=== PATIENT | female | born 1995 | race Two or more races ===

== ENCOUNTER 2024-10-12 14:00 | Emergency (ER) | payer OTHER ==
[~2024-10-12] VITALS: Ht 172.7 cm; Wt 85.6 kg
[2024-10-12 14:56] LABS: Basophils # (auto) 0.1 10 ^3/uL (0-0.2); Basophils % (auto) 0.9 % (0.0-2.0); Eosinophils # (auto) 0.1 10 ^3/uL (0-0.8); Eosinophils % (auto) 1.1 % (0.0-7.0); Hematocrit 43.7 % (36.0-46.0); Hemoglobin 14.8 g/dL (12.2-16.2); Lymphocytes % (auto) 29.8 % (10.0-50.0); Mean Corpuscular Hemoglobin 30.8 pg (28.0-32.0); Mean Corpuscular Hgb Conc. 33.9 g/dL (32.0-36.0); Mean Corpuscular Volume 90.7 fL (80.0-100.0); Monocytes # (auto) 0.4 10 ^3/uL (0-1.3); Monocytes % (auto) 5.9 % (0.0-12.0); Neutrophils # (auto) 4.2 10 ^3/uL (1.6-8.6); Neutrophils % (auto) 62.3 % (37.0-80.0); Nucleated Red Blood Cells % 0.5 %; Platelet Count (auto) 280 10^3/uL (140-450); Red Blood Cells 4.82 10^6/uL (4.0-5.20); Red Cell Distribution Width 12.8 % (11.8-14.3); White Blood Cell 6.8 10^3/uL (4.4-10.8)
[2024-10-12 15:16] VITALS: BP 128/82; PULSE 70; RESP 16; TEMP 98.2; O2SAT 98
--- NOTE | 2024-10-12 16:03 | ED.PDOC ---
[facility] HPI Comments A 29 YEAR OLD FEMALE PRESENTS TO THE ED WITH COMPLAINT OF VAGINAL BLEEDING AND PELVIC CRAMPING. PATIENT STATES SHE IS CURRENTLY , BUT DOES NOT KNOW HOW FAR ALONG SHE WAS AND BEGAN TO EXPERIENCE VAGINAL BLEEDING AND PELVIC CRAMPING ABOUT 6 DAYS AGO. PATIENT REPORTS SHE WENT TO HER PRIMARY CARE PHYSICIAN, BUT WAS TOLD SHE MAY BE HAVING MISCARRIAGE DUE TO HER BETA HCG QUANT DECREASING. PATIENT WAS HERE IN THE ED TO HAVE HER BETA HCG LEVEL RECHECKED. PATIENT DENIES DYSURIA, HEMATURIA, VAGINAL DISCHARGE, FEVER, CHILLS, SHORTNESS OF BREATH, CHEST PAIN, ABDOMINAL PAIN, NAUSEA, VOMITING, HEADACHE, OR OTHER COMPLAINTS. NO OTHER SYMPTOMS OR MODIFYING FACTORS AT THIS TIME. PATIENT IS ALERT, ORIENTED X 4, AND HAS STEADY GAIT. Chief Complaint: Vaginal Bleed Time Seen by MD: 14:19 Reviewed Notes: Nurses Notes, Medications Allergies: Coded Allergies: Ciprofloxacin (Verified Allergy, Unknown, 10/12/24) Information Source: Patient Mode of Arrival: Ambulatory Timing: Days Prehospital treatment: None Severity: Mild, Moderate Vaginal Discharge: None Vaginal Lesions: None Bleeding Quality: Bright Red Vaginal Mass: None Onset Of Mass/Bleeding: Spontaneous Sexual Activity: Last Consensual [place]: Unknown Control: None History of: Current Blood Type: Unknown Symptoms of Possible : None Associated Signs and Symptoms: Vaginal Bleeding, Cramping Past Medical History PAST MEDICAL HISTORY: Denies Surgical History: Denies all surgeries CASE COORDINATOR History: No Pertinent CASE COORDINATOR History Family History Family History: Reviewed,noncontributory to illness Social History Smoker: Non-Smoker Alcohol: Denies ETOH Use Drugs: Denies Drug Use Lives In: Home Constitutional: denies: chills, diaphoresis, fatigue, fever, malaise, sweats, weakness, others EENTM: denies: blurred vision, double vision, ear bleeding, ear discharge, ear drainage, ear pain, ear ringing, eye pain, eye redness, hearing loss, mouth pain, mouth swelling, nasal discharge, nose bleeding, nose congestion, nose pain, photophobia, tearing, throat pain, throat swelling, voice changes, others Respiratory: denies: cough, hemoptysis, orthopnea, SOB at rest, shortness of breath, SOB with excertion, stridor, wheezing, others Cardiovascular: denies: chest pain, dizzy spells, diaphoresis, Dyspnea on exertion, edema, irregular heart beat, left arm pain, lightheadedness, palpitations, PND, syncope, others Gastrointestinal: denies: abdomen distended, abdominal pain, blood streaked bowels, constipated, diarrhea, dysphagia, difficulty swallowing, hematemesis, melena, nausea, poor appetite, poor fluid intake, rectal bleeding, rectal pain, vomiting, others Genitourinary: reports: abnormal vagina bleeding, pain (PELVIC CRAMPING), ; denies: burning, dyspareunia, dysuria, flank pain, frequency, hematuria, incontinence, vagina discharge, urgency, others Neurological: denies: dizziness, fainting, headache, left sided numbness, left sided weakness, numbness, paresthesia, pre-existing deficit, right sided numbnes s, right sided weakness, seizure, speech problems, tingling, tremors, weakness, others Musculoskeletal: denies: back pain, gout, joint pain, joint swelling, muscle pain, muscle stiffness, neck pain, others Integumetry: denies: bruises, change in color, change in hair/nails, dryness, laceration, lesions, lumps, rash, wounds, others Allergic/Immunocompromised: denies: Difficulty Healing, Frequent Infections, Hives, Itching, others Hematologic/Lymphatic: denies: anemia, blood clots, easy bleeding, easy bruising, swollen glands, others Endocrine: denies: excessive hunger, excessive sweating, excessive thirst, excessive urination, flushing, intolerance to cold, intolerance to heat, unexplained weight gain, unexplained weight loss, others Psychiatric: denies: anxiety, bipolar disorder, depression, hopeless, panic disorder, schizophrenia, sleepless, suicidal, others All Other Systems: Reviewed and Negative Physical Exam General Appearance: No Apparent Distress, Normal HEENT: Normal ENT Inspection, PERRL/EOMI, Pharynx Normal, TMs Normal Neck: Full Range of Motion, Non-Tender, Normal, Normal Inspection Respiratory: Chest Non-Tender, Lungs Clear, No Accessory Muscle Use, No Respiratory Distress, Normal Breath Sounds Cardiovascular: No Edema, No JVD, No Murmur, No Gallop, Normal Peripheral Pulses, Regular Rate/Rhythm Breast Exam: Deferred Gastrointestinal: No Organomegaly, Non Tender, No Pulsatile Mass, Normal Bowel Sounds, Soft Genitalia: Deferred Pelvic: Normal External Exam, Vaginal Bleeding (MILD VAGINAL BLEEDING, NO ACTIVELY BLEEDING AND BLOOD CLOTS. ) Rectal: Deferred Extremities: No calf tenderness, Normal capillary refill, Normal inspection, Normal range of motion, Non-tender, No pedal edema Musculoskeletal : Apperance: Normal Neurologic: Alert, back office medical assistant II-XII nml as Tested, No Motor Deficits, Normal Affect, Normal Mood, No Sensory Deficits Cerebellar Function: Normal Reflexes: Normal Skin: Dry, Normal Color, Warm Peripheral Pulses: 2+ carotid (R), 2+ carotid (L) Lymphatic: No Adenopathy Was a procedure done? Was a procedure done?: No Differential Diagnosis (CASE COORDINATOR) Vaginal Bleeding: - Incomplete, - Threatened, Menorrhagia, Menstrual Bleeding, UTI, Vaginitis Mass / Lesion: N/A Vaginal Discharge: N/A X-Ray, Labs, Meds, VS Vital Signs Date Time Temp Pulse Resp B/P (MAP) Pulse Ox O2 Delivery O2 Flow Rate FiO2 10/12/24 15:16 70 16 98 Room Air 10/12/24 15:16 98.2 70 16 128/82 (97) 98 98.2 10/12/24 14:10 98.2 70 16 128/82 (97) 98 Lab Test 10/12/24 14:40 10/12/24 14:09 Range/Units White Blood Count 6.8 4.4-10.8 10^3/uL Red Blood Count 4.82 4.0-5.20 10^6/uL Hemoglobin 14.8 12.2-16.2 g/dL Hematocrit 43.7 36.0-46.0 % Mean Corpuscular Volume 90.7 80.0-100.0 fL Mean Corpuscular Hemoglobin 30.8 28.0-32.0 pg Mean Corpuscular Hemoglobin Concent 33.9 32.0-36.0 g/dL Red Cell Distribution Width 12.8 11.8-14.3 % Platelet Count 280 140-450 10^3/uL Mean Platelet Volume 7.9 6.9-10.8 fL Neutrophils (%) (Auto) 62.3 37.0-80.0 % Lymphocytes (%) (Auto) 29.8 10.0-50.0 % Monocytes (%) (Auto) 5.9 0.0-12.0 % Eosinophils (%) (Auto) 1.1 0.0-7.0 % Basophils (%) (Auto) 0.9 0.0-2.0 % Neutrophils # (Auto) 4.2 1.6-8.6 10 ^3/uL Lymphocytes # (Auto) 2.0 0.4-5.4 10 ^3/uL Monocytes # (Auto) 0.4 0-1.3 10 ^3/uL Eosinophils # (Auto) 0.1 0-0.8 10 ^3/uL Basophils # (Auto) 0.1 0-0.2 10 ^3/uL Nucleated Red Blood Cells 0.5 % Beta HCG, Quantitative 152.5 H 1.5-4.2 mIU/mL Urine Color Colorless Yellow Urine Clarity Clear Clear Urine pH 6.5 5.0-9.0 Urine Specific [place] 1.004 1.001-1.035 Urine Protein Negative Negative Urine Ketones Negative Negative Urine Blood 2+ H Negative /uL Urine Nitrite Negative Negative Urine Bilirubin Negative Negative Urine Urobilinogen Normal Negative mg/dL Urine Leukocyte Esterase Negative Negative /uL Urine RBC 3 0 - 4 /hpf Urine Microscopic WBC 2 0-5 /HPF Urine Squamous Epithelial Cells Few <5 /hpf Urine Bacteria Few H None Seen /hpf Urine Glucose Normal Normal mg/dL Urine Test Negative Negative Procedure: US OB ULTRASOUND COMP LESS 14WKS Study Date and Requested Time: 10/12/2024 03:33 PM Study Description: US OB ULTRASOUND COMP LESS 14WKS Study VAG BLEEDING Comparison: None Technique: Multiple high resolution casas-scale images obtained of the uterus, fetus, and other gestational components with M-mode scanning for evaluation of heart rate. Findings: Intrauterine 0.9 cm sonolucent area over the fundus with no yolk sac or pole visualized. Uterus measures 8.3 x 5.1 x 3.8 cm in size. Multiple heterogeneous areas within the uterus which may represent fibroids, largest measuring up to 2.2 cm. Endometrial thickness of 0.3 cm Cervical os appears closed. Right ovary measures 3.7 x 2 x 2.5 cm. Left ovary measures 3.2 x 1.3 x 2.3 cm. Normal ovarian color Doppler flow bilaterally. No evidence of cystic or solid ovarian lesions. No evidence of free fluid in the cul-de-sac. Impression: 0.9 cm intrauterine sonolucent area with no yolk sac or pole visualized. Finding may represent early . Recommend correlation with serial beta HCG and ultrasound as clinically indicated. Fibroid uterus. ATED BY: ARSLAN MATA DO DICTATED DATE/TIME: 10/12/241702 SIGNED BY: ARSLAN MATA DO SIGNED DATE/TIME: 10/12/241702 CC: X-Ray, Labs, Meds, VS Comment EXTERNAL MEDICAL RECORDS REVIEWED: [NONE] INDEPENDENT HISTORIANS: [NONE] SOCIAL DETERMINANTS OF HEALTH: [NONE] LABS ORDERED: CBC, UA, BETA HCG QUANT REVIEWED AND INTERPRETED RESULTS: BLOOD 2+, BETA HCG QUANT 152.5 IMAGING ORDERED: US OB < 14 WKS TREATMENTS ORDERED: NONE PROCEDURES PERFORMED: NONE CRITICAL CARE TIME: NONE I HAVE DISCUSSED THE PATIENT WITH THE ATTENDING PHYSICIAN DR. CHACON AND HE AGREES WITH THE PATIENT'S PLAN OF CARE AND DISPOSITION. BASED ON HISTORY OF PRESENT ILLNESS, AND PHYSICAL EXAM, PATIENT WILL BE DISCHARGED HOME. SHARED DECISION MAKING: PATIENT INSTRUCTED TO FOLLOW UP WITH PRIMARY CARE PROVIDER IN 1-2 DAYS FOR RE-EVALUATION OF SYMPTOMS. PATIENT VERBALIZES UNDERSTANDING TO RETURN TO ED FOR NEW OR WORSENING SYMPTOMS OR IF FOLLOW UP WITH PCP CANNOT BE OBTAINED. PATIENT FEELS COMFORTABLE GOING HOME AT THIS TIME. ALL QUESTIONS ADDRESSED AT TIME OF DISCHARGE. Images Reviewed?: Images reviewed and evaluated by me Time of 1ST Reevaluation: 17:15 Reevaluation 1ST: Improved Patient Education/Counseling: Diagnosis, Treatment, Need For Follow Up Family Education/Counseling: Diagnosis, Treatment, Need For Follow Up Medical Screening: No EMC Exist At This Time Departure 1 Departure Time of Disposition: 17:15 Impression: Primary Impression: Vaginal bleeding Additional Impressions: Threatened in early Uterine fibroid Qualified Codes: D25.9 - Leiomyoma of uterus, unspecified Disposition: 01 HOME / SELF CARE / HOMELESS Condition: Stable Additional Instructions: FOLLOW-UP WITH PCP AND [facility] IN 2 DAYS. RETURN TO ED FOR ANY NEW OR WORSENING SYMPTOMS. Discharged With: Self Critical Care Note Critical Care Time?: No Stability Stability form required: No I personally scribed for JADEN NICKERSON ([email or web address]) on 10/12/24 at 16:03. Electronically submitted by Hardeep Edwards ([email or web address]). I personally scribed for JADEN NICKERSON ([email or web address]) on 10/12/24 at 17:09. Electronically submitted by Hardeep Edwards ([email or web address]). JADEN NICKERSON Oct 12, 2024 16:03
[2024-10-12 16:42] LABS: Urine Bacteria FEW /hpf (None Seen); Urine Blood 2+ /uL (Negative); Urine Clarity Clear (Clear); Urine Color Colorless (Yellow); Urine Protein, UAD Negative (Negative); Urine Specific Gravity 1.004 (1.001-1.035); Urine Squamous Epithelial Cell FEW /hpf (<5); Urine Urobilinogen Normal (Negative); Urine WBC 2 /HPF (0-5); Urine pH 6.5 (5.0-9.0)
--- NOTE | 2024-10-12 17:05 | DVH ---
Procedure: US OB ULTRASOUND COMP LESS 14WKS Study Date and Requested Time: 10/12/2024 03:33 PM Study Description: US OB ULTRASOUND COMP LESS 14WKS Study VAG BLEEDING Comparison: None Technique: Multiple high resolution casas-scale images obtained of the uterus, fetus, and other gestat ional components with M-mode scanning for evaluation of heart rate. Findings: Intrauterine 0.9 cm sonolucent area over the fundus with no yolk sac or pole visualized. Uterus measures 8.3 x 5.1 x 3.8 cm in size. Multiple heterogeneous areas within the uterus which may represent fibroids, largest measuring up to 2.2 cm. Endometrial thickness of 0.3 cm Cervical os appea rs closed. Right ovary measures 3.7 x 2 x 2.5 cm. Left ovary measures 3.2 x 1.3 x 2.3 cm. Normal ovarian color D oppler flow bilaterally. No evidence of cystic or solid ovarian lesions. No evidence of free fluid in the cul-de-sac. Impression: 0.9 cm intrauterine sonolucent area with no yolk sac or pole visualized. Finding may represent early . Recommend correlation with serial beta HCG and ultrasound as clinically indicated. Fibroid uterus.
== END 2024-10-12 17:14 | disposition home or self-care (01) ==
LOC: ER 14:00
DX: O20.0 Threatened abortion (principal); O34.10 Maternal care for benign tumor of corpus uteri, unspecified trimester; D25.9 Leiomyoma of uterus, unspecified; Z88.1 Allergy status to other antibiotic agents; Z3A.01 Less than 8 weeks gestation of pregnancy
CPT/HCPCS: 36415; 76801; 76817; 81001; 81025; 84702; 85025